=== PATIENT | female | born 1950 | race Caucasian/White ===

== ENCOUNTER 2023-08-27 14:56 | Inpatient (IN) | payer MEDICARE, OTHER, MEDICAID ==
[~2023-08-27] VITALS: Ht 160 cm; Wt 77.3 kg
[2023-08-27 15:10] VITALS: BP 125/56
[2023-08-27] MEDS ORDERED: QUETIAPINE FUM100 M3 PO (15:39)
[2023-08-27] MEDS ORDERED: SERTRALINE HYD100 MG PO (15:39)
[2023-08-27] MEDS ORDERED: DONEPEZIL HCL10 MG PO (15:40)
[2023-08-27] MEDS ORDERED: OXYBUTYNIN10 MG PO (15:40)
[2023-08-27] MEDS ORDERED: MEMANTINE HCL10 MG PO (15:40)
[2023-08-27] MEDS ORDERED: ROPINIROLE HYD0.5 MG PO (15:41)
[2023-08-27] MEDS ORDERED: AMLODIPINE BESY10 MG PO (15:42)
[2023-08-27] MEDS ORDERED: VISION FORMULA1 EAC1 PO (15:43)
[2023-08-27] MEDS ORDERED: VITAMIN D350 MC3 PO (15:44)
[2023-08-27] MEDS ORDERED: CALCIUM 500+D1 EAC2 PO (15:46)
[2023-08-27 15:47] LABS: BASO % 0.4 % (0.0-1.0); EOS # 0.1 10*3/uL (0.0-0.4); EOS % 0.8 % (1.0-4.0); HEMATOCRIT 40.8 % (37.0-47.0); LYMPH # 1.9 10*3/uL (1.3-4.4); LYMPH % 17.1 % (27.0-41.0); MEAN CELL VOLUME 92.3 fl (81.0-99.0); MEAN CORPUSCULAR HGB 30.5 pg (27.0-31.0); MEAN CORPUSCULAR HGB CONC 33.1 g/dl (33.0-37.0); MEAN PLATELET VOLUME 10.5 fl (9.6-12.3); MONO # 0.6 10*3/uL (0.1-1.0); MONO % 5.5 % (3.0-9.0); NEUT # 8.4 10*3/uL (2.3-7.9); PLATELET COUNT AUTOMATED 213 10*3/uL (130-400); RED BLOOD COUNT 4.42 10*6/uL (4.10-5.10); RED CELL DISTRI WIDTH 12.5 % (0-14.5)
[2023-08-27] MEDS ORDERED: SIMVASTATIN40 MG PO (15:47)
[2023-08-27 16:08] LABS: POTASSIUM 3.4 mmol/L (3.4-5.1)
[2023-08-27 16:38] LABS: BILIRUBIN Negative (Negative); BLOOD Trace-Lysed (Negative); CLARITY Cloudy (Clear); COLOR Yellow (Yellow); GLUCOSE Negative (Negative); KETONE Negative (Negative); LEUKO ESTERASE 3+ (Negative); NITRITE Positive (Negative); PH 5.5 (4.5-8.0); UROBILINOGEN 0.2 E.U./dl (0.0-1.0)
[2023-08-27 16:47] LABS: BACTERIA 2+; EPITHELIAL CELLS 0-2; WBC TNTC wbc/hpf (0-5)
[2023-08-27] MEDS ORDERED: Ceftriaxone Sodium 1 GM/10 ML SYR IV ONE (16:55)
[2023-08-27 17:00] VITALS: BP 133/71
[2023-08-27 17:31] VITALS: BP 121/59
[2023-08-27 18:27] VITALS: BP 112/61
[2023-08-27 20:57] VITALS: BP 117/58
[2023-08-27] MEDS ORDERED: ACETAMINOPHEN 325 MG TAB PO PRN (21:05)
[2023-08-27] MEDS ORDERED: BISACODYL 5 MG TAB PO PRN (21:05)
[2023-08-27] MEDS ORDERED: Magnesium Hydroxide 30 ML UDC PO PRN (21:05)
[2023-08-27] MEDS ORDERED: Acetaminophen/Hydrocodone 5 MG/325 MG TABLET PO PRN (21:05)
[2023-08-27] MEDS ORDERED: Ondansetron Hydrochloride 4 MG/2 ML VIAL IV PRN (21:05)
[2023-08-27] MEDS ORDERED: ACETAMINOPHEN 650 MG SUPP R PRN (21:05)
[2023-08-27] MEDS ORDERED: BISACODYL 10 MG SUPP R PRN (21:05)
[2023-08-27] MEDS ORDERED: MORPHINE Sulfate 2 MG/ML SYR IV PRN (21:05)
[2023-08-27 21:20] VITALS: BP 128/60
[2023-08-27] MEDS ORDERED: SEROQUEL100 MG PO (21:56)
[2023-08-28] VITALS: BP 131/73
[2023-08-28 06:56] LABS: BASO % 0.5 % (0.0-1.0); EOS # 0.2 10*3/uL (0.0-0.4); EOS % 2.1 % (1.0-4.0); HEMATOCRIT 38.5 % (37.0-47.0); LYMPH % 23.2 % (27.0-41.0); MEAN CELL VOLUME 90.6 fl (81.0-99.0); MEAN CORPUSCULAR HGB 30.4 pg (27.0-31.0); MEAN CORPUSCULAR HGB CONC 33.5 g/dl (33.0-37.0); MEAN PLATELET VOLUME 10.3 fl (9.6-12.3); MONO # 0.5 10*3/uL (0.1-1.0); MONO % 5.3 % (3.0-9.0); NEUT # 5.9 10*3/uL (2.3-7.9); NEUT % 68.7 % (47.0-73.0); PLATELET COUNT AUTOMATED 206 10*3/uL (130-400); RED BLOOD COUNT 4.25 10*6/uL (4.10-5.10); RED CELL DISTRI WIDTH 12.6 % (0-14.5); WHITE BLOOD COUNT 8.6 10*3/uL (4.8-10.8)
[2023-08-28 07:44] LABS: BUN 14 mg/dl (9-23); CHLORIDE 106 mmol/L (98-107); CHOLESTEROL 138 mg/dL (<200); LDL CHOLESTEROL 79 mg/dL (9-159); TRIGLYCERIDES 84 mg/dl (<150)
[2023-08-28 07:45] LABS: VITAMIN D, 25-HYDROXY 86.5 ng/mL (30-100)
[2023-08-28] MEDS ORDERED: POTASSIUM CHLORIDE 20 MEQ TAB PO ONE (07:55)
[2023-08-28 08:00] VITALS: BP 140/80
[2023-08-28] MEDS ORDERED: CALCIUM CARBONATE/VITAMIN D3 500 MG/200 IU TABLET PO SCH (10:00)
[2023-08-28] MEDS ORDERED: QUETIAPINE FUMARATE 50 MG TAB PO SCH (10:00)
[2023-08-28] MEDS ORDERED: Ropinirole Hydrochloride 0.5 MG TAB PO SCH (10:00)
[2023-08-28] MEDS ORDERED: Memantine Hydrochloride 10 MG TAB PO SCH (10:00)
[2023-08-28] MEDS ORDERED: Oxybutynin Chloride 5 MG TAB PO SCH (10:00)
[2023-08-28] MEDS ORDERED: amLODIPine besylate 10 MG TAB PO SCH (10:00)
[2023-08-28] MEDS ORDERED: Enoxaparin Sodium 40 MG/0.4 ML SYR SC SCH (10:00)
[2023-08-28] MEDS ORDERED: Cholecalciferol 2,000 UNIT TABLET (50 MCG) PO SCH (10:00)
[2023-08-28 12:00] VITALS: BP 127/61
[2023-08-28 16:00] VITALS: BP 119/60
[2023-08-28] MEDS ORDERED: Ceftriaxone Sodium 1 GM in SYRINGE INFUSION 10 ML IV SCH (17:00)
[2023-08-28 20:00] VITALS: BP 133/61
[2023-08-28] MEDS ORDERED: Sertraline Hydrochloride 50 MG TAB PO SCH (22:00)
[2023-08-28] MEDS ORDERED: QUETIAPINE FUMARATE 100 MG TAB PO SCH (22:00)
[2023-08-28] MEDS ORDERED: DONEPEZIL 10 MG TAB PO SCH (22:00)
[2023-08-28] MEDS ORDERED: SIMVASTATIN 20 MG TAB PO SCH (22:00)
[2023-08-29 00:07] VITALS: BP 109/62
[2023-08-29 06:11] LABS: BUN 12 mg/dl (9-23); CHLORIDE 109 mmol/L (98-107); POTASSIUM 3.6 mmol/L (3.4-5.1)
[2023-08-29 06:17] LABS: BASO % 0.5 % (0.0-1.0); EOS # 0.3 10*3/uL (0.0-0.4); EOS % 3.8 % (1.0-4.0); HEMATOCRIT 39.1 % (37.0-47.0); LYMPH # 2.3 10*3/uL (1.3-4.4); LYMPH % 31.8 % (27.0-41.0); MEAN CELL VOLUME 92.7 fl (81.0-99.0); MEAN CORPUSCULAR HGB 30.1 pg (27.0-31.0); MEAN CORPUSCULAR HGB CONC 32.5 g/dl (33.0-37.0); MEAN PLATELET VOLUME 10.9 fl (9.6-12.3); MONO # 0.5 10*3/uL (0.1-1.0); MONO % 6.3 % (3.0-9.0); NEUT # 4.2 10*3/uL (2.3-7.9); NEUT % 57.3 % (47.0-73.0); PLATELET COUNT AUTOMATED 192 10*3/uL (130-400); RED BLOOD COUNT 4.22 10*6/uL (4.10-5.10); WHITE BLOOD COUNT 7.3 10*3/uL (4.8-10.8)
[2023-08-29 08:00] VITALS: BP 122/68
[2023-08-29] MEDS ORDERED: CIPROFLOXACIN 200 ML IV SCH (10:55)
[2023-08-29 12:00] VITALS: BP 116/66
[2023-08-29] MEDS ORDERED: CIPRO500 MG PO (13:47)
[2023-09-04] MEDS ORDERED: MIRTAZAPINE15 M2 PO (07:43)
[2023-09-04] MEDS ORDERED: QUETIAPINE FUMA50 M1 PO (07:43)
[2023-09-04] MEDS ORDERED: RIVASTIGMINE1 EAC2 T (07:43)
== END 2023-08-29 16:54 | DRG 71 ==
LOC: ED 14:56 → 4E 18:27 → EDHOLD 18:27 → 4E 19:45
PROVIDERS: Internal Medicine; Student in an Organized Health Care Education/Training Program; ADMIT Internal Medicine; ATTEND Internal Medicine
DX: G93.41 Metabolic encephalopathy (principal); F23 Brief psychotic disorder; N39.0 Urinary tract infection, site not specified; F33.9 Major depressive disorder, recurrent, unspecified; I10 Essential (primary) hypertension; E55.9 Vitamin D deficiency, unspecified; F03.90 Unspecified dementia, unspecified severity, without behavioral disturbance, psychotic disturbance, mood disturbance, and anxiety; E87.6 Hypokalemia; R73.9 Hyperglycemia, unspecified; E78.5 Hyperlipidemia, unspecified; F41.8 Other specified anxiety disorders; R32 Unspecified urinary incontinence; B96.5 Pseudomonas (aeruginosa) (mallei) (pseudomallei) as the cause of diseases classified elsewhere; B96.89 Other specified bacterial agents as the cause of diseases classified elsewhere; Z90.710 Acquired absence of both cervix and uterus; Z79.899 Other long term (current) drug therapy